=== PATIENT | female | born 2000 | race Two or more races ===

== ENCOUNTER 2022-03-24 02:27 | Emergency (ER) | payer MEDICAID, OTHER ==
[~2022-03-24] VITALS: Ht 157.5 cm; Wt 72.2 kg
[2022-03-24 02:38] VITALS: BP 135/85
== END 2022-03-24 08:45 | disposition left against medical advice (07) ==
LOC: ER 02:27
DX: R00.2 Palpitations (principal); T50.901A Poisoning by unspecified drugs, medicaments and biological substances, accidental (unintentional), initial encounter; F41.9 Anxiety disorder, unspecified
CPT/HCPCS: 93005

== ENCOUNTER 2023-05-06 02:40 | Emergency (ER) | payer MEDICAID ==
[~2023-05-06] VITALS: Ht 157.5 cm; Wt 70.4 kg
[2023-05-06 03:00] VITALS: PULSE 64; RESP 20; O2SAT 96
[2023-05-06 03:26] LABS: Basophils # (auto) 0 10 ^3/uL (0-0.2); Basophils % (auto) 0.2 % (0.0-2.0); Eosinophils # (auto) 0.1 10 ^3/uL (0-0.8); Eosinophils % (auto) 0.9 % (0.0-7.0); Hematocrit 38.4 % (36.0-46.0); Hemoglobin 13.2 g/dL (12.2-16.2); Lymphocytes # (auto) 3.3 10 ^3/uL (0.4-5.4); Lymphocytes % (auto) 35.7 % (10.0-50.0); Mean Corpuscular Hemoglobin 30.7 pg (28.0-32.0); Mean Corpuscular Hgb Conc. 34.4 g/dL (32.0-36.0); Mean Corpuscular Volume 89.3 fL (80.0-100.0); Monocytes # (auto) 0.5 10 ^3/uL (0-1.3); Monocytes % (auto) 5.7 % (0.0-12.0); Neutrophils # (auto) 5.3 10 ^3/uL (1.6-8.6); Neutrophils % (auto) 57.5 % (37.0-80.0); Red Cell Distribution Width 12.5 % (11.8-14.3); White Blood Cell 9.2 10^3/uL (4.4-10.8)
[2023-05-06 03:41] LABS: Alanine Aminotransferase 16 U/L (7-40); Albumin 4.4 g/dL (3.2-4.8); Alkaline Phosphatase 66 U/L (46-116); Anion Gap 5 (5-15); Aspartate Aminotransferase 14 U/L (13-40); BUN/Creatinine Ratio 14.5 (10.0-20.0); Bilirubin, Total 0.4 mg/dL (0.2-1.0); Blood Urea Nitrogen 12 mg/dL (9-23); Calcium 9.2 mg/dL (8.7-10.4); Carbon Dioxide 27 mmol/L (20-30); Chloride 108 mmol/L (98-107); Glucose 101 mg/dL (74-106); Magnesium 1.7 mg/dL (1.6-2.6); Potassium 3.3 mmol/L (3.5-5.1); Sodium 140 mmol/L (136-145)
[2023-05-06 03:43] LABS: INR 1.06 (0.9-1.15); Partial Thromboplastin Time 31.7 SEC (24.5-34.5); Prothrombin Time 11.1 sec (9.3-11.8)
[2023-05-06 04:05] VITALS: BP 109/59; PULSE 65; RESP 17; O2SAT 97
== END 2023-05-06 04:07 | disposition home or self-care (01) ==
LOC: ER 02:42
DX: R07.89 Other chest pain (principal); M54.59 Other low back pain; F41.9 Anxiety disorder, unspecified; Z79.899 Other long term (current) drug therapy
CPT/HCPCS: 36415; 71045; 80053; 83735; 83880; 84484; 85025; 85610; 85730; 93005